=== PATIENT | female | born 1995 | race Caucasian/White ===

== ENCOUNTER 2020-02-17 16:11 | Inpatient (IN) ==
[2020-02-17] MEDS ORDERED: ONDANSETRON 4 MG TAB.RAPDIS PO PRN (16:42)
[2020-02-17] MEDS ORDERED: PENICILLIN G POTASSIUM 5 MILLIONUNT in DEXTROSE 5 % IN WATER 100 ML IV ONE ×2 (16:42)
[2020-02-17] MEDS ORDERED: OXYTOCIN/0.9 % SODIUM CHLORIDE 30 UNITS/500 ML BAG IV ONE (16:42)
[2020-02-17] MEDS ORDERED: RINGER'S SOLUTION,LACTATED 1,000 ML IV ONE (16:42)
[2020-02-17] MEDS: RINGER'S SOLUTION,LACTATED 1,000 ML IV PRN ×2 (17:06→19:04)
[2020-02-17 17:10] LABS: Hemoglobin 12.6 gm/dL (12.5-16.0); Mean Cell Volume 97.1 fl (78-100); Mean Corpuscular Hemoglobin 33.1 pg (27-31); Mean Corpuscular Hgb Conc 34.1 g/dl (32-36); Mean Platelet Volume 9.3 fl (8-12.5); Neutrophil # 11.9 K/mm3 (1.3-6.0); Neutrophil % 78.3 % (42-75.0); Platelet Count 267 K/mm3 (150-450); Red Blood Count 3.81 M/mm3 (4.2-5.4); Red Cell Distribution Width 12.9 % (11.5-14.0); White Blood Count 15.1 K/mm3 (4.0-10.5)
[2020-02-17 17:23] LABS: Albumin * 2.9 gm/dl (3.4-5.0); Anion Gap 15.5 mmol/L (6.8-13.8); Bilirubin, Total 0.2 mg/dL (0.0-1.1); Ca. Corrected For Albumin 10.3 mg/dL (8.4-10.2); Calcium * 9.7 mg/dL (7.9-10.9); Carbon Dioxide 22.9 mmol/L (24-32.6); Potassium 3.4 mmol/L (3.4-4.6); Total Protein 6.8 gm/dL (6.2-8.2)
[2020-02-17 17:30] LABS: Random Urine Total Protein 13.9 mg/dL (0-12)
[2020-02-17] MEDS ORDERED: ONDANSETRON HCL/PF 2 MG/ML VIAL IV PRN (18:14)
[2020-02-17] MEDS ORDERED: NALOXONE HCL 1 MG/1 ML SYRG IV PRN (18:14)
[2020-02-17] MEDS ORDERED: fentaNYL CITRATE/PF 50 MCG/ML AMPUL IT SCH (18:15)
--- NOTE | 2020-02-17 19:06 | ANES ---
Anesthesia Pre Procedure Eval Vitals/Labs: Last Vital Signs Temp 37 C 02/17/20 16:20 Pulse 86 02/17/20 16:20 Resp 18 02/17/20 16:20 BP 157/84 H 02/17/20 16:20 Pulse Ox 99 02/17/20 16:20 HOME MEDICATIONS PNV no.151-iron 27 mg-folic 800 mcg-omega3 260 dx-kjf-vxu-fish capsule 2 cap PO DAILY cap 07/21/19 [Last Taken 02/17/20] ferrous sulfate 325 mg (65 mg iron) tablet 325 mg PO BID #30 tab 12/13/19 [Last Taken 02/17/20] penicillin V potassium 500 mg tablet 500 mg PO Q6H 10 Days #40 tab 02/09/20 [Last Taken 02/17/20 13:00] Allergies/Adverse Reactions: Allergies Allergy/AdvReac Type Severity Reaction Status Date / Time No Known Allergies Allergy Verified 02/17/20 16:22 - Planned Procedure Planned Procedure: Epidural placement for labor analgesia Medication List Reviewed:: Yes Allergies Verified: Yes Medical History (Last Reviewed 02/17/20 @ 19:04 by Jose Chavez CRNA) Anemia affecting (Acute) Onset Date: 12/13/19 Body piercing Onset Date: Unknown Constipation Onset Date: Unknown Tattoos Onset Date: Unknown Wears glasses Onset Date: Unknown Surgical History (Last Reviewed 02/17/20 @ 19:05 by Jose Chavez CRNA) No significant past surgical history Family History (Last Reviewed 02/17/20 @ 19:05 by Jose Chavez CRNA) Mother Uterine endometriosis Father Diabetes - Family Anesthesia History Family History:: no untoward family reactions to anesthesia, no familial bleeding tendencies, no family history of clotting disorders, no family history of premature - Airway/Neck/Teeth Within Normal Limits:: Yes Teeth Condition: intact Mallampatti Score: 2 Thyromental (T-M) distance: > 6 cm Mandibulo Hyoid distance: > 3 cm - Respiratory Respiratory Physical: lungs clear Smoking Status: Former smoker Sleep Apnea currently treated: No Sleep Apnea by current assessment: No - Cardiovascular Cardiac History: hypertension Tolerate Activity: Fair Heart Sounds: S1 & S2, Regular - Gastrointestinal NPO since: this pm - Anesthesia Assessment and Plan ASA Class: PS, II, E Anesthesia Type Plan: Epidural - CSE for labor analgesia
--- NOTE | 2020-02-17 19:30 | ANES ---
Post Anesthesia Discharge - Transfer of Care Transfer of Care handoff given to nurse: Yes - Discharge from PACU Discharge from PACU when meets criteria: Yes - Comfortable post CSE
[2020-02-17] MEDS: BUPIVACAINE HCL/0.9 % NACL/PF 250 ML EP PRN (19:32)
--- NOTE | 2020-02-17 19:32 | ANES ---
Anesthesia Procedure Note Procedure Note: ANESTHESIA PROCEDURE NOTE Date of Procedure: 02/17/2020 Time of procedure: 7:05 PM. Performed by: MIRANDA Gresham CRNA, MSN Bioinformatics Support Specialist: Alina No RN. Preprocedure diagnosis: Active labor, labor pain. Post procedure diagnosis: Same. Procedure:Epidural for labor analgesia L3-4. Indications: Labor pain. Findings: See below. Details of the procedure: The patient was placed on the side of the bed in sitting positionand prepped with DuraPrep then draped in a sterile fashion. Lidocaine 1% was infiltrated to the skin and subcutaneous tissues at the level of the L3-4 interspace. An 18-gauge Touhy needle was used to approach the epidural space with loss of resistance technique. Once loss of resistance was achieved a 27-gauge spinal needle was passed through the epidural needle and CSF was contacted. After CSF returned, 20 mcg of fentanyl was injected in the spinal needle was removed the epidural catheter was then threaded approximately 4 cm in the epidural needle was removed. The catheter was taped in place and after careful aspiration 3 mL of 1.5% lidocaine with 1-200,000 epinephrine was injected without change in maternal heart rate or sensorium. . EBL: Minimal. Fluids: N/A. Specimen: N/A. Post procedure condition: The patient tolerated the procedure well with good relief. No complications were noted. Thank you for this consultation. Joes Chavez CRNA, MIRANDA, MSN
--- NOTE | 2020-02-17 19:39 | ANES ---
Post Anesthesia Assessment - Vital Signs Vitals: Last Vital Signs Temp 37 C 02/17/20 16:20 Pulse 86 02/17/20 16:20 Resp 18 02/17/20 16:20 BP 157/84 H 02/17/20 16:20 Pulse Ox 99 02/17/20 16:20 Airway Patency: Normal - Mental Status Level Of Consciousness: Awake, Alert, Appropriate - Pain Level Pain Score: 0 - N/V Assessment Nausea/Vomiting Presence: None Dehydration:: No
--- NOTE | 2020-02-17 19:47 | HP ---
Chief Complaint - Chief Complaint Date of Service: 02/17/20 Time of Service: 19:40 Chief Complaint: Labor History of Present Illness: 24 year old at 38w 0d who presents to L&D reporting regular ctx. She denies vb or lof. Fetus is active. Patient denies JEONG, visual changes or abdominal pain. Medical History (Last Reviewed 02/17/20 @ 19:41 by Ethel Rangel MD) Anemia affecting (Acute) Onset Date: 12/13/19 Body piercing Onset Date: Unknown Constipation Onset Date: Unknown Tattoos Onset Date: Unknown Wears glasses Onset Date: Unknown Surgical History: Surgical History (Last Reviewed 02/17/20 @ 19:41 by Ethel Rangel MD) No significant past surgical history Family History: Family History (Last Reviewed 02/17/20 @ 19:41 by Ethel Rangel MD) Mother Uterine endometriosis Father Diabetes Social History: (Last Reviewed 02/17/20 @ 19:41 by Ethel Rangel MD) Social History: adopted: No senior care: No Marital status: household members: spouse number of children: 0 current occupational status: employed current occupation: [employer] current occupational exposures/hazards: No Highest level of school completed/degree received: high school graduate Sexually Active: Yes Service: No Tobacco: Smoking Status: Former smoker Alcohol: alcohol intake: current alcohol intake frequency: a few times a month details: No alcohol since + UPT Substance Use: substance use type: does not use Dietary Habits: caffeine: Yes caffeine comment: 1-2/week Type: coffee Exercise: frequency: 3-4 times per week Patricia/Alevism: agree to transfusion: Yes Review Of Systems (GEN) - Review of Systems Generalized/Overall Review: Present: No Symptoms Reported Genitourinary: Present: Other - contractions Misc: All systems neg except as marked Allergies/Adverse Reactions: Allergies Allergy/AdvReac Type Severity Reaction Status Date / Time No Known Allergies Allergy Verified 02/17/20 16:22 Home Medications: HOME MEDICATIONS PNV no.151-iron 27 mg-folic 800 mcg-omega3 260 vu-yix-ytm-fish capsule 2 cap PO DAILY cap 07/21/19 [Last Taken 02/17/20] ferrous sulfate 325 mg (65 mg iron) tablet 325 mg PO BID #30 tab 12/13/19 [Last Taken 02/17/20] penicillin V potassium 500 mg tablet 500 mg PO Q6H 10 Days #40 tab 02/09/20 [Last Taken 02/17/20 13:00] Exam - Exam Vital Signs: Vital Signs - Last Taken Temp 37 C 02/17/20 16:20 Pulse 86 02/17/20 16:20 Resp 18 02/17/20 16:20 BP 157/84 H 02/17/20 16:20 Pulse Ox 99 02/17/20 16:20 Constitutional: Present: Alert, Oriented x3, Cooperative, No distress ENT Exam: Present: hearing grossly normal Eye Exam: bilateral eye: normal inspection Neck: Present: normal inspection Back Exam: Present: normal inspection Breasts: Present: Exam deferred Respiratory: Present: lungs clear, normal breath sounds, no respiratory distress Cardiovascular/Chest: Present: regular rate, rhythm Abdomen: Present: soft, nontender, nondistended /Rectal: Present: Other - 5/60/-2 AROM for clear fluid Extremity: Present: non-tender, no calf tenderness Skin Exam: Present: normal color, warm/dry, no cyanosis Neurologic: Present: alert, normal mood/affect, oriented x 3 Appearance: Present: appropriate appearance, appropriate insight, neat, no memory impairment Eye contact: Present: cooperative, good eye contact, normal speech Thoughts: Present: normal thought pattern Diagnostic Studies: Abnormal Lab Results 02/17/20 02/17/20 02/17/20 Range/Units 17:00 17:00 17:00 WBC 15.1 H (4.0-10.5) K/mm3 RBC 3.81 L (4.2-5.4) M/mm3 MCH 33.1 H (27-31) pg Immature Gran % (Auto) 0.50 H (0.001-0.429) % Immature Gran # (Auto) 0.08 H (0.000-0.0310) K/mm3 Neutrophils % 78.3 H (42-75.0) % Lymphocytes % 15.9 L (20-51) % Neutrophils # 11.9 H (1.3-6.0) K/mm3 Carbon Dioxide 22.9 L (24-32.6) mmol/L Anion Gap 15.5 H (6.8-13.8) mmol/L Calcium Adj for Albumin 10.3 H (8.4-10.2) mg/dL Albumin 2.9 L (3.4-5.0) gm/dl Ur Random Creatinine 39.5 L (60-200) mg/dL U Random Total Protein 13.9 H (0-12) mg/dL U [place] Prot/Creat Ratio 352 H (0-199) mg/gm Laboratory Results WBC 15.1 K/mm3 (4.0-10.5) H 02/17/20 17:00 RBC 3.81 M/mm3 (4.2-5.4) L 02/17/20 17:00 Hgb 12.6 gm/dL (12.5-16.0) 02/17/20 17:00 Hct 37.0 % (37.0-47.0) 02/17/20 17:00 MCV 97.1 fl (78-100) 02/17/20 17:00 MCH 33.1 pg (27-31) H 02/17/20 17:00 MCHC 34.1 g/dl (32-36) 02/17/20 17:00 RDW 12.9 % (11.5-14.0) 02/17/20 17:00 Plt Count 267 K/mm3 (150-450) 02/17/20 17:00 MPV 9.3 fl (8-12.5) 02/17/20 17:00 Immature Gran % (Auto) 0.50 % (0.001-0.429) H 02/17/20 17:00 Immature Gran # (Auto) 0.08 K/mm3 (0.000-0.0310) H 02/17/20 17:00 Neutrophils % 78.3 % (42-75.0) H 02/17/20 17:00 Lymphocytes % 15.9 % (20-51) L 02/17/20 17:00 Monocytes % 4.8 % (0.0-9) 02/17/20 17:00 Eosinophils % 0.2 % (0.0-3.0) 02/17/20 17:00 Basophils % 0.3 % (0.0-1.0) 02/17/20 17:00 Nucleated RBC % 0.0 k/mm3 (0-1) 02/17/20 17:00 Neutrophils # 11.9 K/mm3 (1.3-6.0) H 02/17/20 17:00 Lymphocytes # 2.40 k/mm3 (1.5-3.5) 02/17/20 17:00 Monocytes # 0.7 k/mm3 (0.0-1.0) 02/17/20 17:00 Eosinophils # 0.0 k/mm3 (0.0-0.7) 02/17/20 17:00 Absolute Basophils 0.0 k/mm3 (0.0-0.1) 02/17/20 17:00 Sodium 139 mmol/L (132-142) 02/17/20 17:00 Plasma Sodium 139 mmol/L (130-142) 02/17/20 17:00 Potassium 3.4 mmol/L (3.4-4.6) 02/17/20 17:00 Chloride 104 mmol/L (97-106) 02/17/20 17:00 Carbon Dioxide 22.9 mmol/L (24-32.6) L 02/17/20 17:00 Anion Gap 15.5 mmol/L (6.8-13.8) H 02/17/20 17:00 BUN 9 mg/dL (3-23) 02/17/20 17:00 Creatinine 0.69 mg/dL (0.4-1.4) 02/17/20 17:00 Est GFR (Non-Af Amer) 113 mL/min (60-130) 02/17/20 17:00 BUN/Creatinine Ratio 13.0 (9.0-21.6) 02/17/20 17:00 Random Glucose 93 mg/dL (70-110) 02/17/20 17:00 Calcium 9.7 mg/dL (7.9-10.9) 02/17/20 17:00 Calcium Adj for Albumin 10.3 mg/dL (8.4-10.2) H 02/17/20 17:00 Total Bilirubin 0.2 mg/dL (0.0-1.1) 02/17/20 17:00 AST 17 U/L (0-48) 02/17/20 17:00 ALT 22 U/L (19-67) 02/17/20 17:00 Alkaline Phosphatase 147 U/L (50-170) 02/17/20 17:00 Total Protein 6.8 gm/dL (6.2-8.2) 02/17/20 17:00 Albumin 2.9 gm/dl (3.4-5.0) L 02/17/20 17:00 Ur Random Creatinine 39.5 mg/dL (60-200) L 02/17/20 17:00 U Random Total Protein 13.9 mg/dL (0-12) H 02/17/20 17:00 U [place] Prot/Creat Ratio 352 mg/gm (0-199) H 02/17/20 17:00 Blood Type O Positive 02/17/20 17:00 Antibody Screen Negative 02/17/20 17:00 Assessment/Plan - Narrative Narrative: 24 year old at 38w 0d 1. Admit for labor: AROM for augmentation of labor. Pitocin PRN 2. Pre-eclampsia without severe features: asymptomatic, normal labs, on seizure precautions 3. GBS positive: intrapartum prophylaxis 4. GBS bacteriuria: intrapartum prophylaxis, currently on oral PCN, should be covered by IV PCN during labor - Assessment/Plan (1) 38 weeks gestation of Problem: Acute (2) Pre-eclampsia Problem: Acute Qualifiers: Trimester: third trimester Qualified Code(s): O14.93 - Unspecified pre- eclampsia, third trimester (3) Anemia affecting Problem: Acute Qualifiers: Trimester: third trimester Qualified Code(s): O99.013 - Anemia complicating , third trimester (4) Rh(D) positive Problem: Acute (5) Rubella immune Problem: Acute (6) Positive GBS test Problem: Acute (7) GBS bacteriuria Problem: Acute
[2020-02-17] MEDS: PENICILLIN G POTASSIUM 2.5 MILLIONUNT in DEXTROSE 5 % IN WATER 100 ML IV SCH ×2 (22:05)
[2020-02-18] MEDS: PENICILLIN G POTASSIUM 2.5 MILLIONUNT in DEXTROSE 5 % IN WATER 100 ML IV SCH ×6 (01:16→08:51)
[2020-02-18] MEDS ORDERED: DEXTROSE 5%-LACTATED RINGERS 1,000 ML IV PRN (05:20)
[2020-02-18] MEDS ORDERED: ACETAMINOPHEN 500 MG TABLET PO ONE (07:06)
[2020-02-18] MEDS: BUPIVACAINE HCL/0.9 % NACL/PF 250 ML EP PRN (07:29)
--- NOTE | 2020-02-18 10:01 | PN ---
Progesjudith Note - Interim Date: 02/18/20 Time: 09:58 Narrative: 02/18/20 09:58 The patient is comfortable with her epidural Last exam was 9/100/+1 She is making slow progress Pitocin currently at 4 milliunits/minute Discussed with patient the possibility of delivery COVID test obtained and it is negative Continue current plan of care as long as there is good maternal status
[2020-02-18] MEDS ORDERED: MISOPROSTOL 200 MCG TABLET RC ONE (11:36)
[2020-02-18] MEDS ORDERED: HYDROcodone/ACETAMINOPHEN 1 EACH TABLET PO PRN (11:57)
[2020-02-18] MEDS ORDERED: HYDROCORTISONE 30 APPL TUBE TP PRN (11:57)
[2020-02-18] MEDS ORDERED: OXYTOCIN/0.9 % SODIUM CHLORIDE 30 UNITS/500 ML BAG IV ONE (11:57)
[2020-02-18] MEDS ORDERED: BISACODYL 10 MG SUPP.RECT RC PRN (11:57)
[2020-02-18] MEDS ORDERED: BENZOCAINE/MENTHOL 81 SPRAY CAN TP PRN (11:57)
[2020-02-18] MEDS ORDERED: SENNOSIDES 8.6 MG TABLET PO PRN (11:57)
[2020-02-18] MEDS ORDERED: GLYCERIN/WITCH HAZEL LEAF 40 APPL BOX TP PRN (11:57)
[2020-02-18] MEDS ORDERED: diphenhydrAMINE HCL 25 MG CAPSULE PO PRN (11:57)
--- NOTE | 2020-02-18 11:57 | OR ---
Operative Report - Dictated Report Narrative: Date of delivery: 02/18/2020 Time of delivery: 1129 Gender: female weight: 3327 grams APGARS: 11/01 Procedure: Description of the procedure: The patient is a 24 year old at 38w 1d who presented to L&D in labor and also was found to have pre-eclampsia without severe features. She was augmented with pitocin and AROM. She progressed to complete dilation. She delivered a viable female infant in NIGHAT presentation over an intact perineum. The shoulders delivered without difficulty followed by the rest of the . Cord clamping was delayed for 60 seconds due to vigorous infant. The cord was clamped and cut. Cord blood was collected. The placenta was delivered by expression and appeared intact. The membranes delivered prior to the placenta so will send placenta to pathology to rule out velamentous insertion of the umbilical cord. EBL: 300 mL Cytotec 1000 mcg given rectally due to uterine atony. Complications: none Specimens: cord blood, placenta History for MU Definition: * The number of deliveries resulting in a live the patient experienced prior to current hospitalization * The previous delivery of live twins or any live multiple gestation is considered one live event. *If primagravida or nulliparous is documented select zero for the number of previous live births. Live Events: 0
[2020-02-18] MEDS: IBUPROFEN 800 MG TABLET PO PRN ×2 (12:14→18:18)
[2020-02-18] MEDS: HYDROcodone/ACETAMINOPHEN 1 EACH TABLET PO PRN ×2 (12:15→18:19)
[2020-02-18] MEDS: DOCUSATE SODIUM 100 MG CAPSULE PO SCH (21:00)
[2020-02-19] MEDS: IBUPROFEN 800 MG TABLET PO PRN ×2 (03:09→09:49)
--- NOTE | 2020-02-19 09:34 | PN ---
Subjective - Date and Time Seen Date: 02/19/20 Time: 09:32 Subjective Narrative: Patient without complaints Objective Objective Narrative: See vital signs - Review of Systems Generalized/Overall Review: Reports: No Symptoms Reported Misc: All systems neg except as marked - Vitals Vitals: Last Vital Signs Temp 36.5 C 02/19/20 07:00 Pulse 77 02/19/20 07:00 Resp 20 02/19/20 07:00 BP 116/61 02/19/20 07:00 Pulse Ox 98 02/19/20 01:30 - Exam Constitutional: Present: Alert, Oriented x3, Cooperative, No distress ENT Exam: Present: hearing grossly normal Abdomen: Present: soft, nontender, nondistended - fundus is firm Extremity: Present: non-tender, no calf tenderness Skin Exam: Present: normal color, warm/dry, no cyanosis Neurologic: Present: alert, normal mood/affect, oriented x 3 Appearance: Present: appropriate appearance, appropriate insight, neat, no memory impairment Eye contact: Present: cooperative, good eye contact, normal speech Thoughts: Present: normal thought pattern Cauti Physician Documentation - Urinary Catheter Management Urethral (Dong) Urethral Indwelling: No Date of Insertion: 02/17/20 Time of Insertion: 19:42 Date of Removal: 02/18/20 Time of Removal: 11:35 Assessment/Plan Plan Narrative: PPD 1 s/p Doing well Discharge tomorrow - Problems/Diagnosis (1) 38 weeks gestation of Problem: Acute (2) Pre-eclampsia Problem: Acute Qualifiers: Trimester: third trimester Qualified Code(s): O14.93 - Unspecified pre- eclampsia, third trimester (3) Anemia affecting Problem: Acute Qualifiers: Trimester: third trimester Qualified Code(s): O99.013 - Anemia complicating , third trimester (4) Rh(D) positive Problem: Acute (5) Rubella immune Problem: Acute (6) Positive GBS test Problem: Acute (7) GBS bacteriuria Problem: Acute
[2020-02-19] MEDS: HYDROcodone/ACETAMINOPHEN 1 EACH TABLET PO PRN (09:48)
[2020-02-19] MEDS: DOCUSATE SODIUM 100 MG CAPSULE PO SCH ×2 (09:49→21:18)
[2020-02-20 07:27] VITALS: BP 130/79
--- NOTE | 2020-02-20 12:44 | PN ---
Subjective - Date and Time Seen Date: 02/20/20 Time: 12:40 Objective - Vitals Vitals: Last Vital Signs Temp 36.7 C 02/20/20 07:15 Pulse 94 02/20/20 07:15 Resp 20 02/20/20 07:15 BP 130/79 02/20/20 07:15 Pulse Ox 98 02/20/20 07:15 Patient denies complaints. Specifically denies headache, visual changes, or epigastric pain. Breast-feeding well. Lochia wnl abdomen - soft, nontender Uterus -firm, at umbilicus - 2 DTR-3/4, no clonus. No calf tenderness. 2+ pitting edema to knees Impression: day #2 - s/p spontaneous vaginal delivery. Preeclampsia- resolved. Plan: Routine discharge instructions. Preeclampsia precautions. Pressure check in 1 week. Cauti Physician Documentation - Urinary Catheter Management Urethral (Dong) Urethral Indwelling: No Date of Insertion: 02/17/20 Time of Insertion: 19:42 Date of Removal: 02/18/20 Time of Removal: 11:35 Assessment/Plan - Problems/Diagnosis (1) Pre-eclampsia Problem: Acute Qualifiers: Trimester: third trimester Qualified Code(s): O14.93 - Unspecified pre- eclampsia, third trimester (2) Group B Streptococcus carrier, delivered, current hospitalization Problem: Acute
--- NOTE | 2020-02-20 12:50 | DS ---
OB Discharge Summary (1) Pre-eclampsia Status: Resolved Qualifiers: Trimester: third trimester Qualified Code(s): O14.93 - Unspecified pre- eclampsia, third trimester (2) Group B Streptococcus carrier, delivered, current hospitalization Status: Resolved Delivery Date: 02/18/20 Delivery Time: 11:29 :: 1 Para:: 1 Gestational weeks:: 38 Gestational days:: 1 Intrapartum Procedures: Spontaneous Vaginal Delivery, Delivered, Anesthesia - Epidural, Other - IV PCN for GBS prophylaxis /OP Complications: Preeclampsia/GHTN Discharge Diagnosis: Term -Delivered, Rubella Immune - Discharge Information Date of Discharge: 02/20/20 Hospital Course: 24-year-old 1 para 0 admitted at 38-1/7 weeks for labor. She was noted to have preeclampsia with mild features. Delivery and course were uncomplicated. Discharge Location: Home Disposition: Home self-care Condition: Good Activity on Discharge:: Activity as tolerated, Pelvic Rest Discharge Diet: General/regular food Additional Patient Instructions (free text): Call for signs or symptoms of preeclampsia - (headache that doesn't go away with rest and Tylenol, right upper quadrant abdominal pain, increased swelling in body, seeing flashes of light or other visual disturbances). Your 1 week post follow up appointment with Dr. Delgadillo is scheduled on February at 9:15 a.m. Please call [facility] or [facility] with any problems or concerns. Karolyn's follow up appointment is scheduled with Dr. Wilcox on Saturday February 22, 2020 at 3:30 p.m. Please call [facility] with any problems or concerns. Karolyn passed her hearing screen Karolyn's blood type is O positive Complete Home Medications List: Complete Home Medication List: PNV no.151-iron 27 mg-folic 800 mcg-omega3 260 fe-izl-jyu-fish capsule 2 cap PO DAILY cap 07/21/19 - Plan Discharge to:: Home Follow up in office in:: 1 week - [place] Information Weight (Grams): 3,327 Infant Sex: Female Score 1 min: 9 Score 5 min: 9 Complications: Decreased Variability Other Complications: 02/18/20 @ 1129. Mom GBS positive, treated with PCN x 5 doses.
== END 2020-02-20 13:15 | disposition home or self-care (01) | DRG 807 ==
LOC: OBCLINIC 16:11 → OB 16:41
PROVIDERS: ADMIT Obstetrics & Gynecology; ATTEND Obstetrics & Gynecology
DX: Z37.0 Single live birth; O99.824 Streptococcus B carrier state complicating childbirth; D64.9 Anemia, unspecified; O14.94 Unspecified pre-eclampsia, complicating childbirth; O99.02 Anemia complicating childbirth; Z3A.38 38 weeks gestation of pregnancy